=== PATIENT | male | born 1965 | race Caucasian/White ===

== ENCOUNTER 2021-01-22 08:51 | Inpatient (IN) | payer MEDICAID ==
[2021-01-22] VITALS (15 sets, daily range): BP systolic 90–169; BP diastolic 46–98
[~2021-01-22] VITALS: Ht 190.5 cm; Wt 101.5 kg
[2021-01-22 09:48] LABS: Basophils # (auto) 0.2 10 ^3/uL (0-0.2); Eosinophils # (auto) 0 10 ^3/uL (0-0.8); Hematocrit 49.6 % (41.0-53.0); Hemoglobin 16.2 g/dL (13.5-17.5); Lymphocytes # (auto) 0.7 10 ^3/uL (0.4-5.4); Lymphocytes % (auto) 4.5 % (10.0-50.0); Mean Corpuscular Hemoglobin 29.7 pg (28.0-32.0); Mean Corpuscular Hgb Conc. 32.7 g/dL (32.0-36.0); Mean Corpuscular Volume 90.8 fL (80.0-100.0); Neutrophils # (auto) 14.6 10 ^3/uL (1.6-8.6); Neutrophils % (auto) 88.5 % (37.0-80.0); Platelet Count (auto) 365 10^3/uL (140-450); Red Blood Cells 5.46 10^6/uL (4.5-5.90); Red Cell Distribution Width 16.1 % (11.8-14.3); White Blood Cell 16.5 10^3/uL (4.4-10.8)
[2021-01-22 10:16] LABS: Calcium 8.9 mg/dL (8.5-10.1); Potassium 3.7 mmol/L (3.5-5.1)
[2021-01-22 10:17] LABS: INR 1.13 (0.9-1.15); Partial Thromboplastin Time 28.7 sec (23.0-31.2)
[2021-01-22 10:24] LABS: BUN/Creatinine Ratio 18.1; Bilirubin, Total 0.6 mg/dL (0.2-1.0); Total Protein 8.2 g/dL (6.4-8.2)
[2021-01-22] MEDS: HEPARIN DRIP/D5W 100UNITS/ML 250 ML IV SCH (11:03)
[2021-01-22] MEDS: dilTIAZem 125mg/125ml BAG KIT 100 ML IV SCH (11:04)
[2021-01-22] MEDS: AMIODARONE 450mg/250ml AE 250 ML IV SCH (11:05)
[2021-01-22] MEDS ORDERED: INSULIN LANTUS (GLARGINE) 1 /0.01ml (100units/ml) SC ONE (11:15)
[2021-01-22] MEDS ORDERED: PIPERACILLIN-TAZOB 3.375GM 100 ML IV ONE (11:15)
[2021-01-22] MEDS ORDERED: DEXTROSE (50%) 50ML SYRG IV PRN (11:15)
[2021-01-22] MEDS: INSULIN LANTUS (GLARGINE) 1 /0.01ml (100units/ml) SC SCH (11:22)
[2021-01-22 11:24] LABS: Urine Bacteria NONE SEEN /hpf (None Seen); Urine Blood 1+ /uL (Negative); Urine Specific Gravity 1.037 (1.001-1.035); Urine WBC 1 /hpf (0 - 3)
[2021-01-22] MEDS ORDERED: DIGOXIN (250MCG/ML) 2 ML AMPULE IV ONE ×2 (11:30)
[2021-01-22] MEDS: ACCU-CHEK COMFORT CURVE STRIP VI SCH ×3 (11:58→14:53)
[2021-01-22] MEDS ORDERED: NITROGLYCERIN 50MG/250ML 250 ML IV ONE (12:00)
[2021-01-22] MEDS: SODIUM CHLORIDE 0.9% 1,000 ML IV SCH ×4 (12:14→22:50)
[2021-01-22] MEDS: InsuLIN R (HUMAN) 100 UNITS in SODIUM CHL 0.9% 99 ML IV SCH ×3 (12:17→22:02)
[2021-01-22] MEDS ORDERED: ONDANSETRON HCL 4 MG/2 ML VIAL IV ONE (12:30)
[2021-01-22] MEDS ORDERED: MORPHINE SULFATE 4 MG/ML SYR/VIAL IV ONE (12:30)
[2021-01-22 14:42] LABS: BUN/Creatinine Ratio 22.5; Calcium 8.6 mg/dL (8.5-10.1); Magnesium 2.6 mg/dL (1.6-2.6); Phosphorus 2.8 mg/dL (2.5-4.90); Potassium 3.8 mmol/L (3.5-5.1)
[2021-01-22] MEDS ORDERED: LIDOCAINE 2%HCL (LOCAL ANESTH.) INJ 20ML MDV ONE (14:46)
[2021-01-22] MEDS ORDERED: IODIXANOL 320MG/ML 100ML BTL IV ONE ×3 (14:46→16:51)
[2021-01-22] MEDS ORDERED: ANGIOMAX 250 MG VIAL IV ONE ×2 (14:55→16:46)
[2021-01-22] MEDS ORDERED: VERAPAMIL 2.5MG/ML INJ 2ML VIAL IV ONE (14:56)
[2021-01-22] MEDS ORDERED: MIDAZOLAM HCL 1MG/1ML-2 ML VIAL ONE (14:56)
[2021-01-22] MEDS ORDERED: HEPARIN SODIUM (PORCINE) 5000 UNITS/ML 1ML VIAL ONE (14:56)
[2021-01-22] MEDS ORDERED: fentaNYL CITRATE 100 MCG/2 ML VL ONE (14:56)
[2021-01-22 15:05] LABS: Cholesterol 259 mg/dL (< 200)
[2021-01-22 15:07] LABS: HDL Cholesterol 36 mg/dL (40-59); LDL Cholesterol 180 mg/dL (< 100); Triglycerides 183 mg/dL (< 150)
[2021-01-22] MEDS ORDERED: SODIUM CHLORIDE 0.9% 1,000 ML IV SCH (15:15)
[2021-01-22] MEDS ORDERED: MORPHINE SULF INJ 2 MG/ML SYRINGE 1ML IV PRN (15:30)
[2021-01-22] MEDS ORDERED: DOCUSATE SOD 100 MG CAP PO PRN (15:30)
[2021-01-22] MEDS ORDERED: NITROGLYCERIN 0.4 MG SL TAB SL PRN (15:30)
[2021-01-22] MEDS ORDERED: ACETAMINOPHEN 325 MG TAB PO PRN (15:30)
[2021-01-22] MEDS ORDERED: SODIUM CHL 0.9% 50 ML ONE (16:46)
[2021-01-22] MEDS ORDERED: DIGOXIN (250MCG/ML) 2 ML AMPULE IV STA (16:56)
[2021-01-22] MEDS ORDERED: ASPirin 325 MG TAB ONE (17:00)
[2021-01-22] MEDS ORDERED: CLOPIDOGREL 300 MG TAB ONE ×2 (17:00→17:06)
[2021-01-22] MEDS ORDERED: ONDANSETRON HCL 4 MG/2 ML VIAL ONE (17:01)
[2021-01-22] MEDS: FUROSEMIDE 20 MG/2 ML VIAL IV SCH (18:00)
[2021-01-22 20:05] LABS: Basophils # (auto) 0 10 ^3/uL (0-0.2); Eosinophils # (auto) 0 10 ^3/uL (0-0.8); Hematocrit 43.5 % (41.0-53.0); Hemoglobin 13.9 g/dL (13.5-17.5); Lymphocytes # (auto) 0.8 10 ^3/uL (0.4-5.4); Lymphocytes % (auto) 5.8 % (10.0-50.0); Mean Corpuscular Hemoglobin 29.2 pg (28.0-32.0); Mean Corpuscular Volume 91.1 fL (80.0-100.0); Monocytes # (auto) 0.9 10 ^3/uL (0-1.3); Monocytes % (auto) 7.2 % (0.0-12.0); Neutrophils # (auto) 11.4 10 ^3/uL (1.6-8.6); Nucleated Red Blood Cells % 0.1 %; Platelet Count (auto) 362 10^3/uL (140-450); Red Blood Cells 4.78 10^6/uL (4.5-5.90); White Blood Cell 13.1 10^3/uL (4.4-10.8)
[2021-01-22 20:21] LABS: Albumin 2.5 g/dL (3.4-5.0); Calcium 7.8 mg/dL (8.5-10.1); Potassium 3.8 mmol/L (3.5-5.1)
[2021-01-22 20:24] LABS: Bilirubin, Total 0.5 mg/dL (0.2-1.0)
[2021-01-22 20:29] LABS: INR 1.91 (0.9-1.15)
[2021-01-22 20:33] LABS: Partial Thromboplastin Time 72.3 sec (23.0-31.2)
[2021-01-22] MEDS: ATORVASTATIN 20 MG TAB PO SCH (21:40)
[2021-01-22] MEDS ORDERED: NICOTINE 14 MG/24HR TOPICAL PATCH TD ONE (21:45)
[2021-01-22] MEDS ORDERED: CARVEDILOL 3.125 MG TAB PO SCH (22:00)
[2021-01-23] VITALS (85 sets, daily range): BP systolic 100–178; BP diastolic 63–115
[2021-01-23 00:01] LABS: Calcium 7.4 mg/dL (8.5-10.1); Potassium 3.4 mmol/L (3.5-5.1)
[2021-01-23 00:07] LABS: BUN/Creatinine Ratio 21.4
[2021-01-23] MEDS: LORazepam 2MG/ML-1ML VIAL IV PRN ×3 (00:33→23:34)
[2021-01-23 04:32] LABS: Basophils # (auto) 0 10 ^3/uL (0-0.2); Basophils % (auto) 0.2 % (0.0-2.0); Eosinophils # (auto) 0 10 ^3/uL (0-0.8); Eosinophils % (auto) 0.2 % (0.0-7.0); Hematocrit 39.8 % (41.0-53.0); Hemoglobin 13.3 g/dL (13.5-17.5); Lymphocytes # (auto) 1.4 10 ^3/uL (0.4-5.4); Lymphocytes % (auto) 12.5 % (10.0-50.0); Mean Corpuscular Hgb Conc. 33.5 g/dL (32.0-36.0); Mean Corpuscular Volume 89.6 fL (80.0-100.0); Monocytes # (auto) 0.8 10 ^3/uL (0-1.3); Monocytes % (auto) 7.2 % (0.0-12.0); Neutrophils # (auto) 9.2 10 ^3/uL (1.6-8.6); Neutrophils % (auto) 79.9 % (37.0-80.0); Nucleated Red Blood Cells % 0.1 %; Platelet Count (auto) 349 10^3/uL (140-450); Red Blood Cells 4.44 10^6/uL (4.5-5.90); White Blood Cell 11.5 10^3/uL (4.4-10.8)
[2021-01-23 04:51] LABS: INR 1.14 (0.9-1.15); Partial Thromboplastin Time 30.4 sec (23.0-31.2)
[2021-01-23] MEDS: dilTIAZem 125mg/125ml BAG KIT 100 ML IV SCH ×3 (05:04→16:17)
[2021-01-23] MEDS: SODIUM CHLORIDE 0.9% 1,000 ML IV SCH (05:05)
[2021-01-23 05:12] LABS: Albumin 2.3 g/dL (3.4-5.0); BUN/Creatinine Ratio 18.8; Calcium 7.3 mg/dL (8.5-10.1); Potassium 3.2 mmol/L (3.5-5.1)
[2021-01-23 05:13] LABS: Bilirubin, Total 0.5 mg/dL (0.2-1.0)
[2021-01-23] MEDS: AMIODARONE 450mg/250ml AE 250 ML IV SCH ×2 (05:13→16:15)
[2021-01-23] MEDS: FUROSEMIDE 20 MG/2 ML VIAL IV SCH (05:21)
[2021-01-23] MEDS: HYDROcodone-ACET 5/325MG TAB PO PRN ×2 (06:06→23:35)
[2021-01-23] MEDS: HEPARIN DRIP/D5W 100UNITS/ML 250 ML IV SCH (07:12)
[2021-01-23 07:30] LABS: Magnesium 2.3 mg/dL (1.6-2.6); Phosphorus 1.5 mg/dL (2.5-4.90)
[2021-01-23] MEDS: NICOTINE 14 MG/24HR TOPICAL PATCH TD SCH ×2 (08:08→09:34)
[2021-01-23] MEDS ORDERED: hydrALAZINE HCL 20 MG/ML VL IV PRN (08:45)
[2021-01-23] MEDS ORDERED: POTASSIUM CHL 20 Meq TABLET PO ONE (08:45)
[2021-01-23 09:12] LABS: Alcohol, Urine < 3.0 mg/dL (0-10); Amphetamine Screen, Urine NEGATIVE (NEGATIVE); Barbiturate Scree,Urine NEGATIVE (NEGATIVE); Benzodiazephine Screen, Urine NEGATIVE (NEGATIVE); Cannabinoid Screen, Urine POSITIVE (NEGATIVE); Cocaine Screen, Urine NEGATIVE (NEGATIVE); Opiate Scree,Urine NEGATIVE (NEGATIVE); Phencyclidine Screen, Urine NEGATIVE (NEGATIVE)
[2021-01-23] MEDS: INSULIN LANTUS (GLARGINE) 1 /0.01ml (100units/ml) SC SCH (09:21)
[2021-01-23] MEDS: APIXABAN 5 MG TAB PO SCH ×2 (09:32→22:13)
[2021-01-23] MEDS: CARVEDILOL 12.5 MG TAB PO SCH ×3 (09:32→23:12)
[2021-01-23] MEDS: ASPirin 81 mg TAB PO SCH (09:32)
[2021-01-23] MEDS: DIGOXIN 0.125 MG TAB PO SCH (09:33)
[2021-01-23] MEDS: CLOPIDOGREL BISULFATE 75 MG TAB PO SCH (09:33)
[2021-01-23] MEDS: LISINOPRIL 5 MG TAB PO SCH (09:33)
[2021-01-23] MEDS ORDERED: OPTISON 3ml Vial for INJ IV ONE (09:52)
[2021-01-23] MEDS ORDERED: METF-371 PO (10:56)
[2021-01-23] MEDS ORDERED: LISI2.5T47 PO (10:56)
[2021-01-23] MEDS ORDERED: ASPI-498 OR (10:56)
[2021-01-23] MEDS ORDERED: SIMV10TA2 PO (10:56)
[2021-01-23] MEDS ORDERED: APIX2.5T PO (10:56)
[2021-01-23] MEDS ORDERED: CAR3125T PO (10:56)
[2021-01-23] MEDS ORDERED: DEXTROSE (50%) 50ML SYRG IV PRN (12:00)
[2021-01-23] MEDS ORDERED: POTASSIUM PHOSPHATE 22 MEQ in SODIUM CHL 0.9% 100 ML IV ONE (12:00)
[2021-01-23] MEDS: InsuLIN REG 1unit/0.01ml Soln (100units/ml) SC SCH ×3 (16:15→23:35)
[2021-01-23] MEDS: ACCU-CHEK COMFORT CURVE STRIP VI SCH ×3 (16:15→23:39)
[2021-01-23] MEDS: METOCLOPRAMIDE HCL 5MG/ml INJ 2ml VIAL IV PRN ×3 (17:08→20:05)
[2021-01-23] MEDS: MORPHINE SULF INJ 2 MG/ML SYRINGE 1ML IV PRN ×3 (17:30→22:18)
[2021-01-23] MEDS: FUROSEMIDE 40 MG/4 ML VIAL IV SCH (17:41)
[2021-01-23 18:19] LABS: INR 1.16 (0.9-1.15); Partial Thromboplastin Time 28.7 sec (23.0-31.2)
[2021-01-23] MEDS: ATORVASTATIN 20 MG TAB PO SCH (22:12)
[2021-01-24] VITALS (77 sets, daily range): BP systolic 78–136; BP diastolic 32–88
[2021-01-24] MEDS ORDERED: dilTIAZem 125mg/125ml BAG KIT 125 ML IV ONE (02:43)
[2021-01-24] MEDS: InsuLIN REG 1unit/0.01ml Soln (100units/ml) SC SCH ×6 (04:00→23:27)
[2021-01-24] MEDS: ACCU-CHEK COMFORT CURVE STRIP VI SCH ×6 (04:00→23:33)
[2021-01-24] MEDS: FUROSEMIDE 40 MG/4 ML VIAL IV SCH (06:00)
[2021-01-24 08:29] LABS: BUN/Creatinine Ratio 33.7; Calcium 7.6 mg/dL (8.5-10.1); Magnesium 1.9 mg/dL (1.6-2.6); Phosphorus 1.7 mg/dL (2.5-4.90); Potassium 3.6 mmol/L (3.5-5.1)
[2021-01-24] MEDS: ASPirin 81 mg TAB PO SCH (08:37)
[2021-01-24] MEDS: DIGOXIN 0.125 MG TAB PO SCH (08:38)
[2021-01-24] MEDS: APIXABAN 5 MG TAB PO SCH ×2 (08:38→21:57)
[2021-01-24] MEDS: NICOTINE 14 MG/24HR TOPICAL PATCH TD SCH (08:38)
[2021-01-24] MEDS: CLOPIDOGREL BISULFATE 75 MG TAB PO SCH (08:38)
[2021-01-24] MEDS: LISINOPRIL 5 MG TAB PO SCH (08:38)
[2021-01-24] MEDS: INSULIN LANTUS (GLARGINE) 1 /0.01ml (100units/ml) SC SCH (08:39)
[2021-01-24] MEDS: AMIODARONE 450mg/250ml AE 250 ML IV SCH (08:50)
[2021-01-24] MEDS ORDERED: CARVEDILOL 12.5 MG TAB PO SCH (10:00)
[2021-01-24] MEDS: dilTIAZem 125mg/125ml BAG KIT 100 ML IV SCH (15:45)
[2021-01-24] MEDS ORDERED: AMIODARONE HCL 150 MG in D5W 5% 100 ML IV ONE (17:45)
[2021-01-24] MEDS ORDERED: AMIODARONE 450mg/250ml AE 250 ML IV SCH ×2 (17:45→23:45)
[2021-01-24] MEDS: FUROSEMIDE 20 MG TAB PO SCH (17:59)
[2021-01-24] MEDS ORDERED: POTASSIUM PHOSPHATE 26.4 MEQ in SODIUM CHL 0.9% 100 ML IV ONE (18:00)
[2021-01-24] MEDS: MORPHINE SULF INJ 2 MG/ML SYRINGE 1ML IV PRN (20:26)
[2021-01-24] MEDS: LORazepam 2MG/ML-1ML VIAL IV PRN ×2 (20:27→23:33)
[2021-01-24] MEDS: METOPROLOL SUCCINATE XL 50 MG TAB PO SCH (21:56)
[2021-01-24] MEDS: MAGNESIUM OXIDE 400 MG TAB PO SCH (21:57)
[2021-01-24] MEDS: ATORVASTATIN 20 MG TAB PO SCH (21:57)
[2021-01-24] MEDS: AMIODARONE HCL 200 MG TAB PO SCH (21:57)
[2021-01-24] MEDS: HYDROcodone-ACET 5/325MG TAB PO PRN (21:59)
[2021-01-25] VITALS (7 sets, daily range): BP systolic 94–127; BP diastolic 53–88
[2021-01-25] MEDS: MORPHINE SULF INJ 2 MG/ML SYRINGE 1ML IV PRN ×2 (03:06→20:01)
[2021-01-25] MEDS: InsuLIN REG 1unit/0.01ml Soln (100units/ml) SC SCH ×6 (04:00→23:53)
[2021-01-25] MEDS: ACCU-CHEK COMFORT CURVE STRIP VI SCH ×6 (04:29→23:50)
[2021-01-25] MEDS: FUROSEMIDE 20 MG TAB PO SCH ×2 (06:01→17:13)
[2021-01-25] MEDS: NICOTINE 14 MG/24HR TOPICAL PATCH TD SCH (10:00)
[2021-01-25] MEDS: INSULIN LANTUS (GLARGINE) 1 /0.01ml (100units/ml) SC SCH (10:24)
[2021-01-25] MEDS: ASPirin 81 mg TAB PO SCH (10:26)
[2021-01-25] MEDS: AMIODARONE HCL 200 MG TAB PO SCH ×2 (10:26→21:47)
[2021-01-25] MEDS: APIXABAN 5 MG TAB PO SCH ×2 (10:28→21:47)
[2021-01-25] MEDS: MAGNESIUM OXIDE 400 MG TAB PO SCH ×2 (10:29→21:48)
[2021-01-25] MEDS: DIGOXIN 0.125 MG TAB PO SCH (10:29)
[2021-01-25] MEDS: CLOPIDOGREL BISULFATE 75 MG TAB PO SCH (10:30)
[2021-01-25] MEDS: METOPROLOL SUCCINATE XL 50 MG TAB PO SCH (10:31)
[2021-01-25] MEDS: LISINOPRIL 5 MG TAB PO SCH (10:32)
[2021-01-25] MEDS: HYDROcodone-ACET 5/325MG TAB PO PRN (12:11)
[2021-01-25] MEDS: LORazepam 2MG/ML-1ML VIAL IV PRN ×2 (13:12→21:48)
[2021-01-25] MEDS: ATORVASTATIN 20 MG TAB PO SCH (21:48)
[2021-01-26] MEDS: LORazepam 2MG/ML-1ML VIAL IV PRN ×4 (01:23→14:00)
[2021-01-26] MEDS: METOCLOPRAMIDE HCL 5MG/ml INJ 2ml VIAL IV PRN (03:51)
[2021-01-26] MEDS: ACCU-CHEK COMFORT CURVE STRIP VI SCH ×4 (03:51→16:00)
[2021-01-26] MEDS: InsuLIN REG 1unit/0.01ml Soln (100units/ml) SC SCH ×4 (03:52→16:00)
[2021-01-26 05:26] VITALS: BP 122/73
[2021-01-26] MEDS: FUROSEMIDE 20 MG TAB PO SCH (05:42)
[2021-01-26] MEDS: MORPHINE SULF INJ 2 MG/ML SYRINGE 1ML IV PRN (05:43)
[2021-01-26 09:00] VITALS: BP 114/71
[2021-01-26] MEDS: AMIODARONE HCL 200 MG TAB PO SCH (09:57)
[2021-01-26] MEDS: ASPirin 81 mg TAB PO SCH (09:57)
[2021-01-26] MEDS: APIXABAN 5 MG TAB PO SCH (09:57)
[2021-01-26] MEDS: DIGOXIN 0.125 MG TAB PO SCH (09:58)
[2021-01-26] MEDS: CLOPIDOGREL BISULFATE 75 MG TAB PO SCH (09:58)
[2021-01-26] MEDS: MAGNESIUM OXIDE 400 MG TAB PO SCH (09:58)
[2021-01-26] MEDS: LISINOPRIL 5 MG TAB PO SCH (09:59)
[2021-01-26] MEDS ORDERED: METOPROLOL SUCCINATE XL 50 MG TAB PO SCH (10:00)
[2021-01-26] MEDS: NICOTINE 14 MG/24HR TOPICAL PATCH TD SCH (10:00)
[2021-01-26] MEDS ORDERED: INSULIN LANTUS (GLARGINE) 1 /0.01ml (100units/ml) SC SCH (10:00)
[2021-01-26 13:43] VITALS: BP 105/75
[2021-01-26] MEDS ORDERED: DIGO1TAB48 PO (14:28)
[2021-01-26] MEDS ORDERED: ATOR20TA50 PO (14:28)
[2021-01-26] MEDS ORDERED: APIX5TAB PO (14:28)
[2021-01-26] MEDS ORDERED: METO-6 PO (14:28)
[2021-01-26] MEDS ORDERED: ASPI-498 PO (14:28)
[2021-01-26] MEDS ORDERED: CLOP75TA28 PO (14:28)
[2021-01-26] MEDS ORDERED: MAGN241.4 PO (14:28)
[2021-01-26] MEDS ORDERED: INSLANTI SC (14:28)
[2021-01-26] MEDS ORDERED: LISI-275 PO (14:28)
[2021-01-26] MEDS ORDERED: AMIO200T4 PO (14:30)
== END 2021-01-26 17:00 | disposition home or self-care (01) | DRG 174 ==
LOC: EDBD 08:51 → ER 08:51 → ICU WEST 15:29 → TELE-WESTW 01-25 01:14
PROVIDERS: ADMIT Hospitalist; ATTEND Hospitalist
PROC: 027136Z Dilation of Coronary Artery, Two Arteries with Three Drug-eluting Intraluminal Devices, Percutaneous Approach (ICD-10-PCS; principal; 2021-01-22)
PROC: 4A023N7 Measurement of Cardiac Sampling and Pressure, Left Heart, Percutaneous Approach (ICD-10-PCS; 2021-01-22)
PROC: B211YZZ Fluoroscopy of Multiple Coronary Arteries using Other Contrast (ICD-10-PCS; 2021-01-22)
DX: I21.4 Non-ST elevation (NSTEMI) myocardial infarction (principal); I50.21 Acute systolic (congestive) heart failure; E11.10 Type 2 diabetes mellitus with ketoacidosis without coma; I48.92 Unspecified atrial flutter; Z20.822 Contact with and (suspected) exposure to COVID-19; I48.91 Unspecified atrial fibrillation; E66.9 Obesity, unspecified; K59.00 Constipation, unspecified; I25.10 Atherosclerotic heart disease of native coronary artery without angina pectoris; Z82.49 Family history of ischemic heart disease and other diseases of the circulatory system; Z83.3 Family history of diabetes mellitus; Z79.4 Long term (current) use of insulin; Z79.02 Long term (current) use of antithrombotics/antiplatelets; Z79.01 Long term (current) use of anticoagulants; Z79.899 Other long term (current) drug therapy; Z68.28 Body mass index [BMI] 28.0-28.9, adult
CPT/HCPCS: 36415; 36600; 71045; 80048; 80053; 80061; 80307; 81001; 82010; 82805; 82962; 83036; 83735; 83880; 83930; 84100; 84443; 84484; 85025; 85610; 85730; 86850; 86900; 86901; 87040; 87081; 87426; 93005; 93306; 99152; 99153; 99291; C1887; G0378; J1815; J2250; J2405; J2543; J7060; Q9956; Q9967

== ENCOUNTER 2021-01-28 00:57 | Inpatient (IN) | payer MEDICAID ==
[~2021-01-28] VITALS: Ht 188 cm; Wt 101.2 kg
[2021-01-28] VITALS (30 sets, daily range): BP systolic 85–116; BP diastolic 47–82
[~2021-01-28 00:57] MED LIST: AMIO200T4 PO; APIX5TAB PO; ASPI-498 PO; ATOR20TA50 PO; CLOP75TA28 PO; DIGO1TAB48 PO; INSLANTI SC; LISI-275 PO; MAGN241.4 PO; METF-371 PO; METO-6 PO
[2021-01-28 02:14] LABS: Basophils # (auto) 0.2 10 ^3/uL (0-0.2); Basophils % (auto) 1.4 % (0.0-2.0); Eosinophils # (auto) 0.3 10 ^3/uL (0-0.8); Eosinophils % (auto) 1.8 % (0.0-7.0); Hematocrit 27.1 % (41.0-53.0); Hemoglobin 8.9 g/dL (13.5-17.5); Lymphocytes # (auto) 3.3 10 ^3/uL (0.4-5.4); Lymphocytes % (auto) 22.9 % (10.0-50.0); Mean Corpuscular Hemoglobin 29.3 pg (28.0-32.0); Mean Corpuscular Hgb Conc. 32.7 g/dL (32.0-36.0); Mean Corpuscular Volume 89.5 fL (80.0-100.0); Monocytes % (auto) 7.2 % (0.0-12.0); Neutrophils # (auto) 9.7 10 ^3/uL (1.6-8.6); Neutrophils % (auto) 66.7 % (37.0-80.0); Platelet Count (auto) 426 10^3/uL (140-450); Red Blood Cells 3.03 10^6/uL (4.5-5.90); Red Cell Distribution Width 15.4 % (11.8-14.3); White Blood Cell 14.6 10^3/uL (4.4-10.8)
[2021-01-28 02:34] LABS: Albumin 2.9 g/dL (3.4-5.0); BUN/Creatinine Ratio 40.2; Calcium 8.7 mg/dL (8.5-10.1); Magnesium 2.2 mg/dL (1.6-2.6); Potassium 3.8 mmol/L (3.5-5.1)
[2021-01-28 02:38] LABS: Bilirubin, Total 0.2 mg/dL (0.2-1.0); Total Protein 6.5 g/dL (6.4-8.2)
[2021-01-28 02:55] LABS: INR 1.28 (0.9-1.15)
[2021-01-28] MEDS ORDERED: PANTOPRAZOLE 40 MG/10 ML VIAL INJ IV ONE (03:15)
[2021-01-28] MEDS ORDERED: SODIUM CHLORIDE 0.9% 500 ML IV ONE (03:15)
[2021-01-28] MEDS ORDERED: CEFTRIAXONE SODIUM 2 GM in D5W 5% 50 ML IV ONE (04:30)
[2021-01-28] MEDS ORDERED: cefTRIAXone SOD 1,000 MG VL ONE (04:53)
[2021-01-28] MEDS ORDERED: HYDROcodone-ACET 5/325MG TAB PO ONE (05:45)
[2021-01-28] MEDS ORDERED: MORPHINE SULF INJ 2 MG/ML SYRINGE 1ML IV PRN (06:45)
[2021-01-28] MEDS ORDERED: DEXTROSE (50%) 50ML SYRG IV PRN (06:45)
[2021-01-28] MEDS ORDERED: SODIUM CHLORIDE 0.9% 1,000 ML IV SCH (06:45)
[2021-01-28] MEDS ORDERED: NITROGLYCERIN 0.4 MG SL TAB SL PRN (06:45)
[2021-01-28] MEDS: PANTOPRAZOLE 40mg/50ML NS AE 50 ML IV SCH ×4 (06:45→21:55)
[2021-01-28 07:54] LABS: Hematocrit 23.7 % (41.0-53.0); Hemoglobin 8.3 g/dL (13.5-17.5)
[2021-01-28] MEDS: MORPHINE SULF INJ 2 MG/ML SYRINGE 1ML IV PRN ×2 (09:23→18:06)
[2021-01-28] MEDS: ONDANSETRON HCL 4 MG/2 ML VIAL IV PRN (09:30)
[2021-01-28] MEDS: cefTRIAXone 1GM/50ML D5W 50 ML IV SCH (11:45)
[2021-01-28] MEDS: ACCU-CHEK COMFORT CURVE STRIP VI SCH ×2 (12:15→18:00)
[2021-01-28] MEDS: InsuLIN REG 1unit/0.01ml Soln (100units/ml) SC SCH ×2 (12:15→18:30)
[2021-01-28] MEDS ORDERED: HEPARIN SODIUM (PORCINE) 5000 UNITS/ML 1ML VIAL ONE (12:31)
[2021-01-28] MEDS ORDERED: fentaNYL CITRATE 100 MCG/2 ML VL ONE (12:31)
[2021-01-28] MEDS ORDERED: VERAPAMIL 2.5MG/ML INJ 2ML VIAL IV ONE (12:31)
[2021-01-28] MEDS ORDERED: MIDAZOLAM HCL 1MG/1ML-2 ML VIAL ONE (12:32)
[2021-01-28] MEDS ORDERED: ANGIOMAX 250 MG VIAL IV ONE (12:47)
[2021-01-28] MEDS ORDERED: SODIUM CHL 0.9% 50 ML ONE (12:47)
[2021-01-28] MEDS ORDERED: LIDOCAINE HCL 100 MG/5ML (2%) SYRG INJ IV ONE (12:49)
[2021-01-28 12:56] LABS: Hematocrit 25.9 % (41.0-53.0); Hemoglobin 8.8 g/dL (13.5-17.5)
[2021-01-28] MEDS ORDERED: IODIXANOL 320MG/ML 100ML BTL IV ONE ×2 (13:03→13:46)
[2021-01-28] MEDS ORDERED: DIGOXIN 0.125 MG TAB PO ONE (13:30)
[2021-01-28] MEDS ORDERED: AMIODARONE HCL 200 MG TAB PO ONE (13:30)
[2021-01-28] MEDS ORDERED: METOPROLOL SUCCINATE XL 50 MG TAB PO ONE (13:30)
[2021-01-28] MEDS ORDERED: LISINOPRIL 5 MG TAB PO ONE (13:30)
[2021-01-28] MEDS ORDERED: HYDROmorphone HCL 2 MG/ML VL IV PRN (15:15)
[2021-01-28] MEDS ORDERED: FUROSEMIDE 40 MG/4 ML VIAL ONE (16:52)
[2021-01-28 18:54] LABS: Basophils # (auto) 0.1 10 ^3/uL (0-0.2); Basophils % (auto) 1.1 % (0.0-2.0); Eosinophils # (auto) 0.2 10 ^3/uL (0-0.8); Eosinophils % (auto) 2.1 % (0.0-7.0); Hematocrit 31.7 % (41.0-53.0); Hemoglobin 10.3 g/dL (13.5-17.5); Lymphocytes # (auto) 2.3 10 ^3/uL (0.4-5.4); Lymphocytes % (auto) 25.6 % (10.0-50.0); Mean Corpuscular Hemoglobin 29.9 pg (28.0-32.0); Mean Corpuscular Hgb Conc. 32.6 g/dL (32.0-36.0); Mean Corpuscular Volume 91.6 fL (80.0-100.0); Monocytes # (auto) 0.9 10 ^3/uL (0-1.3); Monocytes % (auto) 9.5 % (0.0-12.0); Neutrophils # (auto) 5.6 10 ^3/uL (1.6-8.6); Neutrophils % (auto) 61.7 % (37.0-80.0); Nucleated Red Blood Cells % 0.1 %; Platelet Count (auto) 388 10^3/uL (140-450); Red Blood Cells 3.46 10^6/uL (4.5-5.90); Red Cell Distribution Width 15.4 % (11.8-14.3); White Blood Cell 9.1 10^3/uL (4.4-10.8)
[2021-01-28 18:59] LABS: Urine Bacteria NONE SEEN /hpf (None Seen); Urine Blood Negative /uL (Negative); Urine Specific Gravity 1.033 (1.001-1.035); Urine WBC 1 /hpf (0 - 3)
[2021-01-28] MEDS: ALPRAZolam 0.5 MG TAB PO PRN (19:55)
[2021-01-28] MEDS: ATORVASTATIN 20 MG TAB PO SCH (21:55)
[2021-01-28] MEDS: AMIODARONE HCL 200 MG TAB PO SCH (21:55)
[2021-01-29] VITALS (24 sets, daily range): BP systolic 86–116; BP diastolic 54–80
[2021-01-29 00:58] LABS: Hematocrit 28.5 % (41.0-53.0); Hemoglobin 9.5 g/dL (13.5-17.5)
[2021-01-29] MEDS: PANTOPRAZOLE 40mg/50ML NS AE 50 ML IV SCH ×5 (02:45→21:43)
[2021-01-29] MEDS: MORPHINE SULF INJ 2 MG/ML SYRINGE 1ML IV PRN ×4 (05:10→23:30)
[2021-01-29] MEDS: InsuLIN REG 1unit/0.01ml Soln (100units/ml) SC SCH ×4 (05:21→17:09)
[2021-01-29] MEDS: ACCU-CHEK COMFORT CURVE STRIP VI SCH ×5 (05:22→23:37)
[2021-01-29 06:02] LABS: Basophils # (auto) 0.1 10 ^3/uL (0-0.2); Basophils % (auto) 0.9 % (0.0-2.0); Eosinophils # (auto) 0.2 10 ^3/uL (0-0.8); Eosinophils % (auto) 2.3 % (0.0-7.0); Hematocrit 25.3 % (41.0-53.0); Hemoglobin 8.7 g/dL (13.5-17.5); Lymphocytes # (auto) 1.6 10 ^3/uL (0.4-5.4); Lymphocytes % (auto) 21.5 % (10.0-50.0); Mean Corpuscular Hemoglobin 30.9 pg (28.0-32.0); Mean Corpuscular Hgb Conc. 34.5 g/dL (32.0-36.0); Mean Corpuscular Volume 89.5 fL (80.0-100.0); Monocytes # (auto) 0.7 10 ^3/uL (0-1.3); Monocytes % (auto) 9.6 % (0.0-12.0); Neutrophils # (auto) 4.8 10 ^3/uL (1.6-8.6); Neutrophils % (auto) 65.7 % (37.0-80.0); Nucleated Red Blood Cells % 0.1 %; Platelet Count (auto) 324 10^3/uL (140-450); Red Blood Cells 2.82 10^6/uL (4.5-5.90); Red Cell Distribution Width 15.3 % (11.8-14.3); White Blood Cell 7.4 10^3/uL (4.4-10.8)
[2021-01-29 06:05] LABS: BUN/Creatinine Ratio 24.7; Calcium 8.3 mg/dL (8.5-10.1)
[2021-01-29] MEDS: cefTRIAXone 1GM/50ML D5W 50 ML IV SCH (09:28)
[2021-01-29] MEDS: AMIODARONE HCL 200 MG TAB PO SCH ×2 (09:29→21:42)
[2021-01-29] MEDS: DIGOXIN 0.125 MG TAB PO SCH (09:29)
[2021-01-29] MEDS: NICOTINE 21MG/24 HR TOPICAL PATCH TD SCH (10:00)
[2021-01-29] MEDS ORDERED: LISINOPRIL 5 MG TAB PO SCH (10:00)
[2021-01-29] MEDS ORDERED: METOPROLOL SUCCINATE XL 50 MG TAB PO SCH (10:00)
[2021-01-29] MEDS: CLOPIDOGREL BISULFATE 75 MG TAB PO SCH (10:00)
[2021-01-29] MEDS: ALPRAZolam 0.5 MG TAB PO PRN ×2 (10:35→21:44)
[2021-01-29] MEDS: ONDANSETRON HCL 4 MG/2 ML VIAL IV PRN (15:28)
[2021-01-29] MEDS: ATORVASTATIN 20 MG TAB PO SCH (21:42)
[2021-01-30] VITALS (10 sets, daily range): BP systolic 72–160; BP diastolic 39–126
[2021-01-30] MEDS: PANTOPRAZOLE 40mg/50ML NS AE 50 ML IV SCH ×2 (03:45→09:13)
[2021-01-30] MEDS: MORPHINE SULF INJ 2 MG/ML SYRINGE 1ML IV PRN ×3 (05:30→14:04)
[2021-01-30] MEDS: ALPRAZolam 0.5 MG TAB PO PRN ×3 (05:30→14:04)
[2021-01-30 05:45] LABS: Basophils # (auto) 0.1 10 ^3/uL (0-0.2); Basophils % (auto) 0.8 % (0.0-2.0); Eosinophils # (auto) 0.2 10 ^3/uL (0-0.8); Eosinophils % (auto) 2.5 % (0.0-7.0); Hemoglobin 9.4 g/dL (13.5-17.5); Lymphocytes # (auto) 1.8 10 ^3/uL (0.4-5.4); Lymphocytes % (auto) 25.7 % (10.0-50.0); Mean Corpuscular Hemoglobin 30.3 pg (28.0-32.0); Mean Corpuscular Hgb Conc. 33.5 g/dL (32.0-36.0); Mean Corpuscular Volume 90.3 fL (80.0-100.0); Monocytes # (auto) 0.8 10 ^3/uL (0-1.3); Monocytes % (auto) 10.9 % (0.0-12.0); Neutrophils # (auto) 4.2 10 ^3/uL (1.6-8.6); Neutrophils % (auto) 60.1 % (37.0-80.0); Nucleated Red Blood Cells % 0.1 %; Platelet Count (auto) 353 10^3/uL (140-450); Red Cell Distribution Width 15.3 % (11.8-14.3); White Blood Cell 7.1 10^3/uL (4.4-10.8)
[2021-01-30] MEDS: InsuLIN REG 1unit/0.01ml Soln (100units/ml) SC SCH ×3 (05:49→18:15)
[2021-01-30] MEDS: ACCU-CHEK COMFORT CURVE STRIP VI SCH ×3 (05:52→18:19)
[2021-01-30 06:02] LABS: Potassium 4.1 mmol/L (3.5-5.1)
[2021-01-30 06:05] LABS: BUN/Creatinine Ratio 12.6; Calcium 8.6 mg/dL (8.5-10.1)
[2021-01-30] MEDS: DIGOXIN 0.125 MG TAB PO SCH (09:01)
[2021-01-30] MEDS: AMIODARONE HCL 200 MG TAB PO SCH (09:01)
[2021-01-30] MEDS: CLOPIDOGREL BISULFATE 75 MG TAB PO SCH (09:01)
[2021-01-30] MEDS: cefTRIAXone 1GM/50ML D5W 50 ML IV SCH (09:01)
[2021-01-30] MEDS: NICOTINE 21MG/24 HR TOPICAL PATCH TD SCH (09:08)
[2021-01-30] MEDS ORDERED: METOPROLOL SUCCINATE XL 50 MG TAB PO SCH (10:00)
[2021-01-30] MEDS ORDERED: LISINOPRIL 5 MG TAB PO SCH (10:00)
[2021-01-30] MEDS ORDERED: METO-6 PO (16:38)
[2021-01-30] MEDS ORDERED: INSULIN LANTUS (GLARGINE) 1 /0.01ml (100units/ml) SC ONE (16:45)
[2021-01-30] MEDS ORDERED: PANT40TA2 PO ×4 (18:24→18:57)
== END 2021-01-30 19:43 | disposition home or self-care (01) | DRG 175 ==
LOC: ER 00:57 → TELE 00:58 → DOU IN ICU 09:07
PROVIDERS: ADMIT Hospitalist; ATTEND Hospitalist
PROC: 027034Z Dilation of Coronary Artery, One Artery with Drug-eluting Intraluminal Device, Percutaneous Approach (ICD-10-PCS; principal; 2021-01-28)
PROC: 4A023N7 Measurement of Cardiac Sampling and Pressure, Left Heart, Percutaneous Approach (ICD-10-PCS; 2021-01-28)
PROC: 02703ZZ Dilation of Coronary Artery, One Artery, Percutaneous Approach (ICD-10-PCS; 2021-01-28)
PROC: 30233N1 Transfusion of Nonautologous Red Blood Cells into Peripheral Vein, Percutaneous Approach (ICD-10-PCS; 2021-01-28)
PROC: B211YZZ Fluoroscopy of Multiple Coronary Arteries using Other Contrast (ICD-10-PCS; 2021-01-28)
PROC: 05H933Z Insertion of Infusion Device into Right Brachial Vein, Percutaneous Approach (ICD-10-PCS; 2021-01-28)
PROC: B54MZZA Ultrasonography of Right Upper Extremity Veins, Guidance (ICD-10-PCS; 2021-01-28)
DX: I22.2 Subsequent non-ST elevation (NSTEMI) myocardial infarction (principal); I21.4 Non-ST elevation (NSTEMI) myocardial infarction; E11.10 Type 2 diabetes mellitus with ketoacidosis without coma; I50.41 Acute combined systolic (congestive) and diastolic (congestive) heart failure; K92.2 Gastrointestinal hemorrhage, unspecified; I25.10 Atherosclerotic heart disease of native coronary artery without angina pectoris; D62 Acute posthemorrhagic anemia; I11.0 Hypertensive heart disease with heart failure; I48.92 Unspecified atrial flutter; Z79.02 Long term (current) use of antithrombotics/antiplatelets; I95.9 Hypotension, unspecified; D72.829 Elevated white blood cell count, unspecified; E78.5 Hyperlipidemia, unspecified; F12.90 Cannabis use, unspecified, uncomplicated; I42.9 Cardiomyopathy, unspecified; I48.91 Unspecified atrial fibrillation; Z20.822 Contact with and (suspected) exposure to COVID-19; N12 Tubulo-interstitial nephritis, not specified as acute or chronic; I50.9 Heart failure, unspecified; Z79.01 Long term (current) use of anticoagulants; Z79.4 Long term (current) use of insulin; Z80.42 Family history of malignant neoplasm of prostate; N28.0 Ischemia and infarction of kidney
CPT/HCPCS: 36415; 36430; 71045; 74177; 78707; 80048; 80053; 81001; 82962; 83605; 83690; 83735; 83880; 84484; 85014; 85018; 85025; 85610; 86850; 86900; 86901; 86920; 87040; 87081; 87086; 87426; 92920; 93005; 93458; 96365; 96375; 99152; 99153; 99291; C1887; C9113; G0378; J0696; J2250; J2405; J7060; Q9967